=== PATIENT | female | born 1965 | race Caucasian/White ===

== ENCOUNTER 2018-12-18 11:34 | Emergency (ER) | payer MEDICAID ==
[~2018-12-18] VITALS: Ht 175.3 cm; Wt 127.5 kg
[2018-12-18 11:38] VITALS: BP 151/101
--- NOTE | 2018-12-18 11:46 | NUR ---
PT AMBULUATED TO BED 8
--- NOTE | 2018-12-18 12:12 | NUR ---
C/O RT ARM NUMBNESS X3 MONTHS. 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 PT REPORTS INTERMITTENT CP/HEAVINESS X1 YEAR. PT REPORTS LOWER BACK PAIN AT X6 MONTHS THAT HAS BEEN GETTING WORSE. PT DENIES N/V/D OR FEVER. MEDHX:LT HIP REPLACEMENT RX:IBUPROFEN
--- NOTE | 2018-12-18 12:31 | NUR ---
Dr. Dunaway evaluating patient at bedside.
[2018-12-18] MEDS ORDERED: KETOROLAC 30 MG/ML VIAL IVP ONE (13:15)
[2018-12-18 13:43] LABS: APPEARANCE,URINE CLEAR (CLEAR); BILIRUBIN,URINE NEGATIVE (NEGATIVE); BLOOD, URINE NEGATIVE (NEGATIVE); COLOR,URINE YELLOW (YELLOW); LEUKOCYTE ESTERASE ,URINE NEGATIVE (NEGATIVE); NITRITE, URINE NEGATIVE (NEGATIVE); UGLUCOSE NEGATIVE (NEGATIVE)
[2018-12-18 14:10] LABS: BASOPHILS % (AUTO) 0.5 % (0.0-2.0); EOSINOPHILS # (AUTO) 0.2 K/uL (0-0.4); EOSINOPHILS % (AUTO) 4.4 % (0.0-4.0); HEMATOCRIT 39.6 % (36-48); HEMOGLOBIN 13.5 g/dL (12.0-16.0); LYMPHOCYTES # (AUTO) 0.8 K/uL (2.5-16.5); LYMPHOCYTES % (AUTO) 21.8 % (20.5-51.1); MEAN CORPUSCULAR HEMOGLOBIN 31 pg (27-31); MEAN CORPUSCULAR HGB CONC 34 g/dL (33-37); MONOCYTES # (AUTO) 0.4 K/uL (0.8-1.0); MONOCYTES % (AUTO) 11.9 % (1.7-9.3); NEUTROPHILS # (AUTO) 2.2 K/uL (1.8-7.7); NEUTROPHILS % (AUTO) 61.4 % (42.2-75.2); PLATELET COUNT (AUTO) 236 K/uL (140-450); RED BLOOD CELL COUNT(AUTO) 4.36 MIL/uL (4.20-5.40); RED CELL DISTRIBUTION WIDTH 13.5 % (11.6-13.7); WHITE BLOOD COUNT (AUTO) 3.7 K/uL (4.8-10.8)
[2018-12-18 14:28] LABS: ANION GAP 13.3 (8-16); CARBON DIOXIDE 29.6 mmol/L (21-32); CREATININE 0.8 mg/dL (0.6-1.3); POTASSIUM 3.9 mmol/L (3.5-5.1)
[2018-12-18 14:33] LABS: ALBUMIN 3.6 g/dL (3.4-5.0); TOTAL BILIRUBIN 0.4 mg/dL (0.0-1.0)
[2018-12-18 14:35] LABS: PROTHROMBIN TIME 9.7 secs (10.8-13.4)
[2018-12-18 14:52] LABS: D-DIMER < 100 ng/ml (0-400)
[2018-12-18 15:13] LABS: C-REACTIVE PROTEIN QUANT 0.9 mg/dL (0.0-0.9)
[2018-12-18 18:34] VITALS: BP 135/90
== END 2018-12-18 15:15 | disposition home or self-care (01) ==
LOC: MED 11:34
DX: M50.122 Cervical disc disorder at C5-C6 level with radiculopathy (principal); M48.02 Spinal stenosis, cervical region; M51.16 Intervertebral disc disorders with radiculopathy, lumbar region; M32.9 Systemic lupus erythematosus, unspecified; R79.1 Abnormal coagulation profile; Z96.642 Presence of left artificial hip joint
CPT/HCPCS: 36415; 71045; 72125; 72131; 80053; 81003; 81025; 83880; 84484; 84550; 85025; 85379; 85610; 85730; 86140; 93005; 96374; 99284; J1885; Q0092

== ENCOUNTER 2019-03-08 15:00 | Emergency (ER) | payer MEDICAID ==
[~2019-03-08] VITALS: Ht 175.3 cm; Wt 122.5 kg
[2019-03-08 15:05] VITALS: BP 138/98
--- NOTE | 2019-03-08 15:30 | NUR ---
C/O MID UPPER & MID LOWER BACK PAIN X 2 MONTHS. PATIENT STATES PAIN OF 10/10 AT THIS TIME; VSS; PATIENT POSITIONED FOR COMFORT; HOB ELEVATED; BEDRAILS UP X1; BED DOWN. ER MD MADE AWARE OF PT STATUS.
[2019-03-08] MEDS ORDERED: KETOROLAC 30 MG/ML VIAL IM ONE (15:40)
[2019-03-08 16:02] VITALS: BP 145/92
--- NOTE | 2019-03-08 16:03 | NUR ---
Patient discharged with v/s stable. Written and verbal after care instructions given and explained. Patient alert, oriented and verbalized understanding of instructions. Ambulatory with steady gait. All questions addressed prior to discharge. ID band removed. Patient advised to follow up with PMD. Rx of Diclofenac Sodium given. Patient educated on indication of medication including possible reaction and side effects. Opportunity to ask questions provided and answered.
== END 2019-03-08 16:04 | disposition home or self-care (01) ==
LOC: MED 15:00
DX: M54.9 Dorsalgia, unspecified (principal); G89.29 Other chronic pain; Z76.0 Encounter for issue of repeat prescription
CPT/HCPCS: 81002; 81025; 96372; 99283; J1885

== ENCOUNTER 2019-04-06 23:14 | Emergency (ER) | payer MEDICAID ==
[~2019-04-06] VITALS: Ht 175.3 cm; Wt 117.9 kg
[2019-04-06 23:35] VITALS: BP 129/89
[2019-04-07 02:16] VITALS: BP 129/89
== END 2019-04-07 02:16 | disposition home or self-care (01) ==
LOC: MED 23:14
DX: M51.26 Other intervertebral disc displacement, lumbar region (principal); M50.20 Other cervical disc displacement, unspecified cervical region; I10 Essential (primary) hypertension; Z76.0 Encounter for issue of repeat prescription
CPT/HCPCS: 99283